=== PATIENT | female | born 1950 | race Caucasian/White ===

== ENCOUNTER 2021-12-15 23:58 | Emergency (ER) | payer OTHER ==
[~2021-12-15] VITALS: Ht 157.5 cm; Wt 63.0 kg
--- NOTE | 2021-12-16 00:57 | NUR ---
DENNIS FROM HOME TO ER BED 7. AAOX4. NOT IN RESP DISTRESS. AMBULATORY. BROUGHT IN FOR VAGINAL PAIN X 1 WEEK. PT REPORTS THAT SHE HAVE A "BALL" THAT CAME OUT OF HER VAGINA. UPON INSPECTION, CHAPERONED BY NIMO- TARIQ, NOTED PROLAPSE, PINK IN COLOR. PAIN IS 9/10. AWAITING FOR EVAL.
--- NOTE | 2021-12-16 01:02 | NUR ---
PATIENT ASSISTED TO THE RESTROOM FOR URINE SAMPLE.
--- NOTE | 2021-12-16 01:11 | NUR ---
URINE COLECTED AND SENT TO LAB
[2021-12-16 01:52] LABS: BILIRUBIN,URINE NEGATIVE (NEGATIVE); COLOR,URINE YELLOW (YELLOW); LEUKOCYTE ESTERASE ,URINE TRACE (NEGATIVE); NITRITE, URINE POSITIVE (NEGATIVE); PROTEIN,URINE TRACE mg/dl (NEGATIVE); UGLUCOSE NEGATIVE (NEGATIVE); UROBILINOGEN,URINE 0.2 EU/dL (0.2)
[2021-12-16] MEDS ORDERED: NITR100C6 PO (02:25)
[2021-12-16 02:27] LABS: BACTERIA,URINE Many /HPF (None Seen); RBC,URINE 0-2 /HPF (0-2); SQUAMOUS EPITHELIAL CELL,UR Few /HPF (None Seen)
[2021-12-16] MEDS ORDERED: NITROFURANTOIN/MONOHYDRATE MACROCRYSTALS 100 MG CAPSULE PO ONE (02:30)
[2021-12-16] MEDS ORDERED: NITROFURANTOIN/MONOHYDRATE MACROCRYSTALS 100 MG CAPSULE ONE (02:38)
--- NOTE | 2021-12-16 02:42 | NUR ---
Patient discharged to home in stable condition. Written and verbal after care instructions given. Patient verbalizes understanding of instruction. Pt ambulatory with a steady gait
[2021-12-16 02:43] VITALS: BP 145/77
== END 2021-12-16 02:43 | disposition home or self-care (01) ==
LOC: ER 12-16 00:05
DX: N39.0 Urinary tract infection, site not specified (principal); B96.89 Other specified bacterial agents as the cause of diseases classified elsewhere; N81.10 Cystocele, unspecified; I10 Essential (primary) hypertension; E78.5 Hyperlipidemia, unspecified; E11.9 Type 2 diabetes mellitus without complications; Z79.899 Other long term (current) drug therapy
CPT/HCPCS: 81001; 87086-TC; 87186-TC